=== PATIENT | female | born 1955 | race Caucasian/White ===

== ENCOUNTER 2019-03-03 16:16 | Observation (INO) ==
[2019-03-03] MEDS ORDERED: ONDANSETRON 4 MG/2 ML VIAL IV PRN (21:45)
[2019-03-03] MEDS ORDERED: MORPHINE 4 MG/1 ML VIAL IV PRN (21:45)
[2019-03-03] MEDS ORDERED: ACETAMINOPHEN 325 MG TABLET PO PRN (21:45)
[2019-03-04] MEDS: ALBUTEROL/IPRATROPIUM 3 ML NEB RESP TX SCH ×4 (00:20→18:30)
[2019-03-04 05:42] LABS: Basophils % 0.2 % (0.0-0.8); Eosinophils # 0.3 10*3/uL (0.0-0.87); Eosinophils % 5.6 % (0.00-10.9); Hematocrit 28.5 VOL% (35.7-47.0); Hemoglobin 9.1 GM/DL (12.0-16.0); Lymphocytes % 42.1 % (21.3-54.2); Mean Corpuscular HGB Conc 31.9 GM/DL (32-36); Mean Corpuscular Volume 88.8 FL (87-102); Mean Platelet Volume 10.3 FL (9.6-12.0); Monocytes % 11.7 % (1.7-12.7); Neutrophils % 40.4 % (38.7-73.9); Platelet Count 235 T/CUMM (130-400); Red Blood Count 3.21 MC/CUMM (3.8-5.5); Red Cell Distribution Width 16.3 % (9.3-17.3); White Blood Count 4.8 T/CUMM (4-12)
[2019-03-04 06:06] LABS: Albumin 3.3 G/DL (3.4-5.0); Bilirubin,Total 0.4 MG/DL (0.2-1.0); Calcium 8.8 MG/DL (8.5-10.1); Osmolality,Calculated 281.3 MOS/KG (273-304); Total Protein 7.3 G/DL (6.4-8.3)
[2019-03-04] MEDS ORDERED: tiZANidine 4 MG TABLET PO PRN (12:16)
[2019-03-04] MEDS: NICOTINE 21 MG/24 HR PATCH TRANSDERM PRN (13:27)
[2019-03-04] MEDS: SERTRALINE 100 MG TABLET PO SCH (13:28)
[2019-03-04] MEDS ORDERED: MAGNESIUM SULF RIDER 2 GM in PREMIX 1 EACH IV PRN (15:36)
[2019-03-04] MEDS ORDERED: MAGNESIUM SULF RIDER 4 GM in PREMIX 1 EACH IV PRN (15:36)
[2019-03-04] MEDS ORDERED: POTASSIUM CHLORIDE 20 MEQ TABLET PO PRN (15:56)
[2019-03-04] MEDS: GABAPENTIN 100 MG CAPSULE PO SCH ×2 (16:32→20:57)
[2019-03-04] MEDS: busPIRone 5 MG TABLET PO SCH ×2 (16:33→20:58)
[2019-03-04] MEDS ORDERED: AMITRIPTYLINE 25 MG TABLET PO SCH (21:00)
[2019-03-05] MEDS: ALBUTEROL/IPRATROPIUM 3 ML NEB RESP TX SCH ×3 (01:05→14:50)
[2019-03-05 05:28] LABS: Basophils % 0.2 % (0.0-0.8); Eosinophils # 0.2 10*3/uL (0.0-0.87); Eosinophils % 4.3 % (0.00-10.9); Hematocrit 27.6 VOL% (35.7-47.0); Hemoglobin 8.4 GM/DL (12.0-16.0); Immature Granulocytes % 0.4 %; Immature Granulocytes Absolute 0.02 #; Lymphocytes # 2.1 10*3/uL (1.4-4.0); Lymphocytes % 44.5 % (21.3-54.2); Mean Corpuscular HGB Conc 30.4 GM/DL (32-36); Mean Corpuscular Volume 91.7 FL (87-102); Mean Platelet Volume 10.2 FL (9.6-12.0); Monocytes % 9.8 % (1.7-12.7); Neutrophils % 40.8 % (38.7-73.9); Platelet Count 220 T/CUMM (130-400); Red Blood Count 3.01 MC/CUMM (3.8-5.5); Red Cell Distribution Width 15.9 % (9.3-17.3); White Blood Count 4.6 T/CUMM (4-12)
[2019-03-05 05:57] LABS: Calcium 8.7 MG/DL (8.5-10.1); Osmolality,Calculated 280.4 MOS/KG (273-304)
[2019-03-05] MEDS: SERTRALINE 100 MG TABLET PO SCH (08:31)
[2019-03-05] MEDS: GABAPENTIN 100 MG CAPSULE PO SCH ×2 (08:31→14:58)
[2019-03-05] MEDS: busPIRone 5 MG TABLET PO SCH ×2 (08:31→14:57)
[2019-03-05] MEDS: NICOTINE 21 MG/24 HR PATCH TRANSDERM PRN (08:32)
[2019-03-05 12:16] VITALS: BP 103/40
== END 2019-03-05 15:53 | disposition home or self-care (01) ==
LOC: SUATTDRO 18:38 → INTOOBSV 18:38 → N.2E 18:38
PROVIDERS: ADMIT Internal Medicine; ATTEND Internal Medicine